=== PATIENT | female | born 1945 | race Caucasian/White ===

== ENCOUNTER 2019-02-12 13:16 | Emergency (ER) | payer BC, MEDICARE ==
[2019-02-12] MEDS ORDERED: AZITHROMYCIN 500 MG TABLET PO ONE (13:24)
[2019-02-12] MEDS ORDERED: IPRATROPIUM/ALBUTEROL (0.5MG/3MG) NEB INH ONE (13:24)
[2019-02-12] MEDS ORDERED: PREDNISONE 20 MG TAB PO ONE (13:24)
--- NOTE | 2019-02-12 13:30 | Emergency Department Record ---
History of Present Illness - General Chief complaint: Cold Stated complaint: COUGH,SORE THROAT,PRESSURE IN THE EARS Time Seen by Provider: 02/12/19 13:17 Source: Patient, Family Mode of Arrival: Ambulatory Limitations: No limitations - History of Present Illness Initial comments: 73 yo female presents with a cough for about a month. She has had some alicea bjective fevers at times. The is productive at times. No nausea or vomiting. She does have a history of asthma. She did get the Flu vaccine and Pneumonia vaccine. She has some sore throat but she relates that to coughing. No chest or abdominal pain. No edema. MD complaint: Sore throat, Other -: Month(s) Location: Other Severity: Moderate Quality: Other Consistency: Other Improves with: None Worsens with: Other (Coughing) Associated Symptoms: Cough, Fever - Related Data Home Medications Medication Instructions Recorded Confirmed Last Taken Albuterol Sulfate [Ventolin Hfa] 1 - 2 puff IH .EVERY 4-6 HOURS PRN 02/12/19 02/12/19 02/12/19 Amlodipine Besylate [Norvasc] 5 mg PO DAILY 02/12/19 02/12/19 02/12/19 Aspirin [Aspirin EC] 81 mg PO DAILY 02/12/19 02/12/19 02/12/19 Cholecalciferol (Vitamin D3) 2,000 unit PO DAILY 02/12/19 02/12/19 02/12/19 [Vitamin D3] Meloxicam 15 mg PO DAILY 02/12/19 02/12/19 02/12/19 Metoprolol Succinate [Toprol Xl] 25 mg PO DAILY 02/12/19 02/12/19 02/12/19 Potassium Chloride [Klor-Con 10] 10 meq PO DAILY 02/12/19 02/12/19 02/12/19 Red Yeast Rice 600 mg PO DAILY 02/12/19 02/12/19 02/12/19 Previous Rx's Medication Instructions Recorded Azithromycin [Zithromax] 250 mg PO DAILY #4 tab 02/12/19 Prednisone [Prednisone 20Mg] 20 mg PO BID #10 tab 02/12/19 Allergies Allergy/AdvReac Type Severity Reaction Status Date / Time [id number] Reductase AdvReac BODY ACHES Verified 02/12/19 13:26 Inhibitor Review of Systems Constitutional: Reports: Fever. Denies: Chills Eyes: Denies: Eye discharge ENT: Reports: Congestion, Throat pain. Denies: Ear pain Respiratory: Reports: Cough, Wheezes. Denies: Dyspnea, Hemoptysis Cardiovascular: Denies: Chest pain, Edema, Palpitations, Syncope Endocrine: Denies: Fatigue, Polydipsia, Polyuria Gastrointestinal: Denies: Abdominal pain, Diarrhea, Nausea, Vomiting Genitourinary: Denies: Dysuria, Urgency Musculoskeletal: Denies: Arthralgia, Back pain, Myalgia Skin: Denies: Bruising, Change in color, Rash Neurological: Denies: Headache Psychiatric: Denies: Anxiety Hematological/Lymphatic: Denies: Easy bleeding, Easy bruising Physical Exam - General General Appearance: Alert, Oriented x3, Cooperative, No acute distress Limitations: No limitations - Head Head exam: Atraumatic, Normal inspection - Eye Eye exam: Normal appearance, PERRL. negative: Conjunctival injection, Scleral icterus - ENT ENT exam: Normal exam, Mucous membranes moist Ear exam: Normal external inspection Nasal Exam: Normal inspection Mouth exam: Normal external inspection Teeth exam: Normal inspection Throat exam: Tonsillar erythema. negative: Tonsillomegaly, Tonsillar exudate, R peritonsillar mass, L peritonsillar mass - Neck Neck exam: Normal inspection, Full ROM. negative: Lymphadenopathy, Tenderness - Respiratory Respiratory exam: Decreased breath sounds, Prolonged expiratory, Rhonchi, Wheezes. negative: Normal lung sounds bilaterally, Accessory muscle use, Respiratory distress - Cardiovascular Cardiovascular Exam: Regular rate, Normal rhythm, Normal heart sounds - GI/Abdominal GI/Abdominal exam: Soft. negative: Tenderness - Rectal Rectal exam: Deferred - exam: Deferred - Extremities Extremities exam: Normal inspection. negative: Pedal edema, Tenderness - Back Back exam: Denies: CVA tenderness (R), CVA tenderness (L) - Neurological Neurological exam: Alert, Oriented X3 - Psychiatric Psychiatric exam: Normal affect, Normal mood - Skin Skin exam: Dry, Intact, Normal color, Warm Course - Reevaluation(s) Reevaluation #1: 02/12/19 13:52 The strep and the influenza are negative 02/12/19 14:11 Influenza and Strep are negative 02/12/19 14:16 The patient is doing very well after the nebulized treatment She has ProAir at home and can use that every 4-6 hours as instructed We discussed the home treatment, close follow up with her PCP and reasons to return to the ED Disposition Disposition: Discharge Clinical Impression: Bronchitis Disposition: Home, Self-Care Condition: (1) Good Instructions: Acute Bronchitis (ED) Additional Instructions: Review this ER visit and the tests performed with your family doctor Call your doctor for the next available follow up appointment Return to the ER for a recheck immediately if worse, any new concerns or questions Take the prescriptions provided as directed Prescriptions: Prednisone [Prednisone 20Mg] 20 mg PO BID #10 tab Azithromycin [Zithromax] 250 mg PO DAILY #4 tab Forms: Patient Portal Access Time of Disposition: 14:11 Quality - Quality Measures Quality Measures: N/A - Blood Pressure Screening Does Patient Have Any of the Following: Active Dx of HTN Blood Pressure Classification: Hypertensive Reading Systolic Measurement: 150 Diastolic Measurement: 94 Screening for High Blood Pressure: Patient Exclusion, Hx of HTN [[id number]]
[2019-02-12 13:42] LABS: STREP A SCREEN NEGATIVE (NEGATIVE)
[2019-02-12 13:51] LABS: INFLUENZA A NEGATIVE (NEGATIVE); INFLUENZA B NEGATIVE (NEGATIVE)
--- NOTE | 2019-02-12 14:15 | RADIOLOGY REPORT ---
EXAMINATION: Two View Chest Radiographs EXAM DATE: 02/12/2019 1:53 PM TECHNIQUE: PA and lateral chest radiography obtained. INDICATION: Cough and wheezing x1 month. Reported history of asthma. COMPARISON: None FINDINGS: The heart and pulmonary vasculature are normal in size and there are no acute pulmonary infiltrates o r pleural effusions. There are some linear parenchymal changes compatible atelectasis or scarring. Th ere are no findings to suggest air trapping. No acute bony abnormality is seen. IMPRESSION: No radiographic evidence of acute pulmonary disease. Dictated by: Denis Bennett MD on 02/12/2019 2:09 PM. .
== END 2019-02-12 14:26 | disposition home or self-care (01) ==
LOC: ER 13:16
DX: J20.9 Acute bronchitis, unspecified (principal)
CPT/HCPCS: 99284 ×2; 87880; 87400; 71046; 94640; J7512